=== PATIENT | female | born 1975 | race Two or more races ===

== ENCOUNTER 2017-03-23 00:08 | Emergency (ER) | payer SELFPAY ==
[~2017-03-23] VITALS: Ht 149.9 cm; Wt 63.5 kg
[2017-03-23 01:13] LABS: Urine Bacteria MOD /hpf (None Seen); Urine Blood 2+ /uL (Negative); Urine Specific Gravity 1.012 (1.001-1.035); Urine WBC 2 /hpf (0 - 5)
[2017-03-23 01:14] LABS: Basophils # (auto) 0.1 uL; Eosinophils # (auto) 0.2 uL; Hematocrit 33.5 % (36.0-46.0); Mean Corpuscular Volume 65.4 fL (80.0-100.0); Red Blood Cells 5.12 10^6/uL (4.0-5.20)
[2017-03-23 01:15] LABS: Basophils % (auto) 0.9 % (0.0-2.0); Eosinophils % (auto) 1.7 % (0.0-7.0); Hemoglobin 10.5 g/dL (12.2-16.2); Lymphocytes # (auto) 2.3 uL; Lymphocytes % (auto) 18.2 % (10.0-50.0); Mean Corpuscular Hemoglobin 20.5 pg (28.0-32.0); Mean Corpuscular Hgb Conc. 31.3 g/dL (32.0-36.0); Monocytes # (auto) 0.9 uL; Monocytes % (auto) 6.9 % (0.0-12.0); Neutrophils % (auto) 72.3 % (37.0-80.0); Platelet Count (auto) 244 10^3/uL (140-450); White Blood Cell 12.4 10^3/uL (4.4-10.8)
[2017-03-23 01:16] LABS: Red Cell Distribution Width 23.3 % (11.8-14.3)
[2017-03-23 01:59] LABS: Albumin 3.5 g/dL (3.4-5.0); BUN/Creatinine Ratio 18.8; Bilirubin, Total 0.2 mg/dL (0.2-1.0); Calcium 8.5 mg/dL (8.5-10.1); Potassium 4.2 mmol/L (3.5-5.1); Total Protein 7.7 g/dL (6.4-8.2)
[2017-03-23] MEDS ORDERED: SODIUM CHLORIDE 0.9% 500 ML IV ONE (07:22)
[2017-03-23 08:17] VITALS: BP 117/62
== END 2017-03-23 09:29 | disposition home or self-care (01) ==
LOC: ER 00:12
DX: O46.91 Antepartum hemorrhage, unspecified, first trimester (principal); O26.891 Other specified pregnancy related conditions, first trimester; R31.9 Hematuria, unspecified; Z3A.09 9 weeks gestation of pregnancy
CPT/HCPCS: 36415; 76801; 80053; 81001; 84702; 85025; 99285; J7030

== ENCOUNTER 2017-10-03 10:30 | Observation (INO) | payer MEDICAID ==
[2017-10-03] MEDS ORDERED: PREN-96 PO (12:03)
== END 2017-10-03 12:10 | disposition home or self-care (01) | DRG 566 ==
LOC: LDRP 10:30 → UNDODISOB 12:10
PROVIDERS: ADMIT Specialist; ATTEND Specialist
DX: O24.419 Gestational diabetes mellitus in pregnancy, unspecified control (principal); Z3A.37 37 weeks gestation of pregnancy
CPT/HCPCS: 59025; 76818; 81002; 82948; 82962; G0378

== ENCOUNTER 2017-10-07 11:53 | Observation (INO) | payer MEDICAID ==
[~2017-10-07 11:53] MED LIST: PREN-96 PO
== END 2017-10-07 13:30 | disposition home or self-care (01) | DRG 566 ==
LOC: LDRP 11:53
PROVIDERS: ADMIT Obstetrics & Gynecology; ATTEND Obstetrics & Gynecology
DX: O24.419 Gestational diabetes mellitus in pregnancy, unspecified control (principal); O26.893 Other specified pregnancy related conditions, third trimester; H53.8 Other visual disturbances; O09.523 Supervision of elderly multigravida, third trimester; Z3A.38 38 weeks gestation of pregnancy
CPT/HCPCS: 59025; 76818; 81002; 82948; 82962; G0378

== ENCOUNTER 2017-10-10 10:11 | Observation (INO) | payer MEDICAID | END 2017-10-10 11:35 | disposition home or self-care (01) | DRG 566 | LOC: LDRP 10:11 | PROVIDERS: ADMIT Specialist; ATTEND Specialist | DX: O24.419 Gestational diabetes mellitus in pregnancy, unspecified control (principal); O09.523 Supervision of elderly multigravida, third trimester; Z3A.38 38 weeks gestation of pregnancy | CPT/HCPCS: 59025; 76818; 81002; 82948; 82962; G0378 ==

== ENCOUNTER 2017-10-13 11:16 | Observation (INO) | payer MEDICAID | END 2017-10-13 13:45 | disposition home or self-care (01) | DRG 566 | LOC: LDRP 11:16 | PROVIDERS: ADMIT Obstetrics & Gynecology; ATTEND Obstetrics & Gynecology | DX: O24.419 Gestational diabetes mellitus in pregnancy, unspecified control (principal); Z3A.39 39 weeks gestation of pregnancy | CPT/HCPCS: 59025; 76818; 81002; 82962; G0378 ==

== ENCOUNTER 2017-10-16 11:00 | Observation (INO) | payer MEDICAID | END 2017-10-16 12:50 | disposition home or self-care (01) | DRG 566 | LOC: LDRP 11:00 | PROVIDERS: ADMIT Obstetrics & Gynecology; ATTEND Obstetrics & Gynecology | DX: O24.419 Gestational diabetes mellitus in pregnancy, unspecified control (principal); O09.523 Supervision of elderly multigravida, third trimester; Z3A.39 39 weeks gestation of pregnancy | CPT/HCPCS: 59025; 76818; 81002; 82962; G0378 ==

== ENCOUNTER 2017-10-18 08:30 | Inpatient (IN) | payer MEDICAID ==
[2017-10-18] VITALS (13 sets, daily range): BP systolic 103–140; BP diastolic 53–86
[~2017-10-18] VITALS: Ht 152.4 cm; Wt 73.9 kg
[2017-10-18] MEDS ORDERED: LACTATED RINGER'S 1,000 ML IV SCH ×2 (10:20)
[2017-10-18 10:57] LABS: Basophils # (auto) 0.1 uL; Eosinophils # (auto) 0 uL; Hemoglobin 14.6 g/dL (12.2-16.2); Lymphocytes # (auto) 1.9 uL; Neutrophils # (auto) 5.4 uL; White Blood Cell 8.1 10^3/uL (4.4-10.8)
[2017-10-18 11:00] LABS: Basophils % (auto) 0.9 % (0.0-2.0); Eosinophils % (auto) 0.5 % (0.0-7.0); Lymphocytes % (auto) 23.2 % (10.0-50.0); Mean Corpuscular Volume 85.2 fL (80.0-100.0); Monocytes # (auto) 0.7 uL; Monocytes % (auto) 8.7 % (0.0-12.0); Neutrophils % (auto) 66.7 % (37.0-80.0); Platelet Count (auto) 142 10^3/uL (140-450); Red Blood Cells 5.05 10^6/uL (4.0-5.20)
[2017-10-18 11:01] LABS: Red Cell Distribution Width 24.3 % (11.8-14.3)
[2017-10-18 11:02] LABS: Urine Bacteria NONE SEEN /hpf (None Seen); Urine Blood TRACE /uL (Negative); Urine Specific Gravity 1.017 (1.001-1.035); Urine WBC 6 /hpf (0 - 5)
[2017-10-18 11:11] LABS: INR 0.87 (0.9-1.15); Partial Thromboplastin Time 30.6 sec (23.78-33.04); Prothrombin Time 9.4 sec (9.27-12.13)
[2017-10-18 11:18] LABS: Albumin 2.5 g/dL (3.4-5.0); BUN/Creatinine Ratio 15.7; Bilirubin, Total 0.4 mg/dL (0.2-1.0); Calcium 9.1 mg/dL (8.5-10.1); Potassium 3.9 mmol/L (3.5-5.1); Total Protein 6.2 g/dL (6.4-8.2)
[2017-10-18] MEDS ORDERED: LIDOCAINE HCL (LOCAL ANESTH.) 0.5 % 50ML MDV IJ ONE (12:27)
[2017-10-18] MEDS ORDERED: MORPHINE SULF(PF) 0.5MG/ML 10ML VIAL ONE (12:28)
[2017-10-18] MEDS ORDERED: fentaNYL CITRATE 100 MCG/2 ML VL ONE (12:28)
[2017-10-18] MEDS ORDERED: LIDOCAINE HCL 4% IJ ONE (12:28)
[2017-10-18] MEDS ORDERED: BUPIVACAINE HCL 0.25% P/F 10 ML VIAL ONE (12:30)
[2017-10-18] MEDS ORDERED: TETRACAINE 1% INJ 2 ML VIAL IJ ONE (12:37)
[2017-10-18] MEDS ORDERED: LACT. RINGERS/OXYTOCIN 20UNITS 1,000 ML IV SCH (13:43)
[2017-10-18] MEDS ORDERED: KETOROLAC TROMETH 30 MG/ML 1ML VIAL IV PRN (13:45)
[2017-10-18] MEDS ORDERED: MORPHINE SULFATE 8mg/ml INJ SDV IV PRN (13:45)
[2017-10-18] MEDS ORDERED: ceFAZolin 1GM/100ML 50 ML IV SCH (14:00)
[2017-10-18] MEDS: LACTATED RINGER'S 1,000 ML IV SCH (17:00)
[2017-10-18 18:42] LABS: Basophils # (auto) 0 uL; Basophils % (auto) 0.4 % (0.0-2.0); Eosinophils # (auto) 0 uL; Eosinophils % (auto) 0.2 % (0.0-7.0); Hematocrit 41.8 % (36.0-46.0); Hemoglobin 14.1 g/dL (12.2-16.2); Lymphocytes # (auto) 1.5 uL; Lymphocytes % (auto) 13.2 % (10.0-50.0); Mean Corpuscular Hemoglobin 29.1 pg (28.0-32.0); Mean Corpuscular Hgb Conc. 33.8 g/dL (32.0-36.0); Mean Corpuscular Volume 86.3 fL (80.0-100.0); Monocytes # (auto) 0.5 uL; Neutrophils % (auto) 81.2 % (37.0-80.0); Nucleated Red Blood Cells % 0.1 %; Platelet Count (auto) 123 10^3/uL (140-450); Red Blood Cells 4.84 10^6/uL (4.0-5.20)
[2017-10-18 18:45] LABS: Red Cell Distribution Width 23.7 % (11.8-14.3)
[2017-10-18] MEDS: ceFAZolin 1GM/100ML 50 ML IV SCH (19:55)
[2017-10-19] VITALS (10 sets, daily range): BP systolic 106–142; BP diastolic 64–84
[2017-10-19] MEDS: LACTATED RINGER'S 1,000 ML IV SCH (02:00)
[2017-10-19] MEDS: ceFAZolin 1GM/100ML 50 ML IV SCH ×2 (03:25→11:02)
[2017-10-19 06:51] LABS: Basophils # (auto) 0.1 uL; Basophils % (auto) 0.6 % (0.0-2.0); Eosinophils # (auto) 0 uL; Eosinophils % (auto) 0.3 % (0.0-7.0); Hematocrit 38.4 % (36.0-46.0); Hemoglobin 13.2 g/dL (12.2-16.2); Lymphocytes # (auto) 1.1 uL; Mean Corpuscular Hemoglobin 29.5 pg (28.0-32.0); Mean Corpuscular Hgb Conc. 34.5 g/dL (32.0-36.0); Mean Corpuscular Volume 85.5 fL (80.0-100.0); Monocytes # (auto) 0.5 uL; Monocytes % (auto) 6.4 % (0.0-12.0); Neutrophils # (auto) 6.7 uL; Neutrophils % (auto) 79.7 % (37.0-80.0); Platelet Count (auto) 120 10^3/uL (140-450); Red Blood Cells 4.49 10^6/uL (4.0-5.20); White Blood Cell 8.4 10^3/uL (4.4-10.8)
[2017-10-19 06:52] LABS: Red Cell Distribution Width 23.7 % (11.8-14.3)
[2017-10-19] MEDS ORDERED: HYDROcodone-ACET 5/325MG TAB PO PRN (08:45)
[2017-10-19] MEDS: DOCUSATE SOD 100 MG CAP PO SCH ×2 (09:44→21:37)
[2017-10-19] MEDS: DOCUSATE CALCIUM 240 MG CAP PO SCH (09:44)
[2017-10-19] MEDS: HYDROcodone-ACET 5/325MG TAB PO PRN ×3 (09:47→21:53)
[2017-10-19] MEDS: SIMETHICONE 80 MG CHEWABLE TABLET PO SCH ×3 (11:02→21:37)
[2017-10-19] MEDS: IBUPROFEN 800 MG TAB PO PRN ×2 (12:15→20:22)
[2017-10-19] MEDS ORDERED: TETANUS-DIPTH-ACEL PERTUSSIS 0.5ML SYRG IM ONE (22:00)
[2017-10-20 02:40] VITALS: BP 126/78
[2017-10-20] MEDS: IBUPROFEN 800 MG TAB PO PRN ×2 (05:07→16:00)
[2017-10-20] MEDS: SIMETHICONE 80 MG CHEWABLE TABLET PO SCH ×4 (05:30→21:57)
[2017-10-20 07:12] VITALS: BP 117/67
[2017-10-20] MEDS ORDERED: TETANUS-DIPTH-ACEL PERTUSSIS 0.5ML SYRG IM ONE (08:00)
[2017-10-20] MEDS: HYDROcodone-ACET 5/325MG TAB PO PRN ×3 (09:04→22:00)
[2017-10-20] MEDS: DOCUSATE CALCIUM 240 MG CAP PO SCH (10:00)
[2017-10-20] MEDS: DOCUSATE SOD 100 MG CAP PO SCH ×2 (10:00→21:58)
[2017-10-20 11:00] VITALS: BP_SYST 131; BP_SYST 148; BP_DIAS 82; BP_DIAS 87
[2017-10-20 13:47] LABS: Basophils # (auto) 0 uL; Basophils % (auto) 0.5 % (0.0-2.0); Eosinophils # (auto) 0.1 uL; Eosinophils % (auto) 0.6 % (0.0-7.0); Hematocrit 39.2 % (36.0-46.0); Hemoglobin 13.2 g/dL (12.2-16.2); Lymphocytes # (auto) 1.2 uL; Lymphocytes % (auto) 11.6 % (10.0-50.0); Mean Corpuscular Hemoglobin 29.2 pg (28.0-32.0); Mean Corpuscular Hgb Conc. 33.6 g/dL (32.0-36.0); Mean Corpuscular Volume 86.8 fL (80.0-100.0); Monocytes # (auto) 0.4 uL; Monocytes % (auto) 4.2 % (0.0-12.0); Neutrophils # (auto) 8.5 uL; Neutrophils % (auto) 83.1 % (37.0-80.0); Nucleated Red Blood Cells % 0.1 %; Platelet Count (auto) 150 10^3/uL (140-450); Red Blood Cells 4.51 10^6/uL (4.0-5.20); White Blood Cell 10.2 10^3/uL (4.4-10.8)
[2017-10-20 13:48] LABS: Red Cell Distribution Width 23.7 % (11.8-14.3)
[2017-10-20 15:00] VITALS: BP 148/82
[2017-10-20 19:00] VITALS: BP 140/82
[2017-10-20] MEDS: BISACODYL 10 MG RECT SUPP PR PRN (20:45)
[2017-10-20 23:00] VITALS: BP 132/83
[2017-10-21] MEDS: IBUPROFEN 800 MG TAB PO PRN
[2017-10-21 03:00] VITALS: BP 129/65
[2017-10-21] MEDS: HYDROcodone-ACET 5/325MG TAB PO PRN (03:22)
[2017-10-21] MEDS: BISACODYL 10 MG RECT SUPP PR PRN (04:04)
[2017-10-21] MEDS: SIMETHICONE 80 MG CHEWABLE TABLET PO SCH (05:47)
[2017-10-21 07:25] VITALS: BP 131/80
== END 2017-10-21 12:56 | disposition home or self-care (01) | DRG 540 ==
LOC: OBSVTOIN 08:30 → LDRP 08:30
PROVIDERS: ADMIT Obstetrics & Gynecology; ATTEND Obstetrics & Gynecology
PROC: 10D00Z1 Extraction of Products of Conception, Low, Open Approach (ICD-10-PCS; 2017-10-18)
PROC: 0UL70CZ Occlusion of Bilateral Fallopian Tubes with Extraluminal Device, Open Approach (ICD-10-PCS; principal; 2017-10-18 12:00)
DX: O32.1XX0 Maternal care for breech presentation, not applicable or unspecified (principal); O24.429 Gestational diabetes mellitus in childbirth, unspecified control; Z30.2 Encounter for sterilization; Z37.0 Single live birth; Z23 Encounter for immunization
CPT/HCPCS: 36415; 59025; 76818; 80053; 81001; 81002; 82948; 82962; 85025; 85610; 85730; 86850; 86900; 86901; 90472; 90715; 96361; J0690; J1885; J2001; J2270; J3490